=== PATIENT | male | born 1980 | race Caucasian/White ===

== ENCOUNTER 2024-06-24 06:09 | Emergency (ER) | payer OTHER, SELFPAY ==
[2024-06-24 06:12] VITALS: BP 143/87; PULSE 100; RESP 16; TEMP 36.1; O2SAT 96; BMI 24.4
--- NOTE | 2024-06-24 06:17 | CRLHL7_ITS ---
For Patients: As a result of the Century Cures Act, medical imaging exams and procedure reports are released immediately into your electronic medical record. You may view this report before your referring provider. If you have questions, please contact your health care provider. Indication: Injury Technique: A total of three-view of the right hand were acquired. Comparison: None Findings: Bones: Alignment is normal. Subtle linear lucency of the distal fibula. This may be chronic though it could represent a subtle nondisplaced fracture. Correlate with point tenderness at the distal most fibula. Joint spaces: No dislocation. Soft tissues: Soft tissue swelling. No gas within soft tissues. No radiopaque foreign body. Impression: Subtle linear lucency of the distal most fibula. This may be chronic though I suspect a subtle nondisplaced fracture in this area. Correlate with point tenderness at the distal most fibula. No dislocation. No additional findings suggesting fracture. Dictated by Hesham Carvalho MD @ 06/24/2024 6:33:37 AM (Electronically Signed)
--- NOTE | 2024-06-24 06:27 | ED.NURSE ---
ice pack applied.
--- NOTE | 2024-06-24 06:56 | ED_ITS ---
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 He turned quickly and stepped in a hole rolling his right ankle. He had pain immediately that eventually subsided. When he awoke this morning the pain was severe again prompting a trip to the ER. He does not have a local doctor. No other injury. Related Data Allergies Allergy/AdvReac Type Severity Reaction Status Date / Time No Known Drug Allergies Allergy Verified 06/24/24 06:15 Review of Systems Narrative: Review of systems is outlined above otherwise noted to be negative. Exam Narrative: Exam Narrative: Vitals noted. Examination is limited to the right lower extremity. He has soft tissue swelling over the lateral malleolus. He has no medial tenderness and no 5th metatarsal tenderness. There is point tenderness over the extreme distal fi bula. Currently there is minimal swelling and no bruising. Const: Vital Signs, click to edit/add: Vital Signs - 24 hr 06/24/24 06:12 Temperature 97.0 F L Pulse Rate [Left P ulse Oximeter] 100 Respiratory Rate 16 Blood Pressure [Ri ght Upper Arm] 143/87 H Pulse Oximetry 96 Oxygen Delivery Me thod Room Air Course Course ED Course: Patient seen and examined. X-ray confirms a subtle nondisplaced fracture of his extreme right distal fibula. This corresponds with his area of tenderness. He is placed in a cam walker and is able to bear weight. Vital Signs Vital signs: Initial Vital Signs Temperature 97.0 F L 06/24/24 06:12 Temperature Source Temporal Artery Scan 06/24/24 06:12 Pulse Rate 100 06/24/24 06:12 Pulse Rhythm Regular 06/24/24 06:12 Respiratory Rate 16 06/24/24 06:12 Blood Pressure 143/87 H 06/24/24 06:12 Blood Pressure Mean 105 06/24/24 06:12 Blood Pressure Position Sitting 06/24/24 06:12 Pulse Oximetry 96 06/24/24 06:12 Oxygen Delivery Method Room Air 06/24/24 06:12 Vital Signs Temperature 97.0 F L 06/24/24 06:12 Pulse Rate 100 06/24/24 06:12 Respiratory Rate 16 06/24/24 06:12 Blood Pressure 143/87 H 06/24/24 06:12 Pulse Oximetry 96 06/24/24 06:12 Oxygen Delivery Method Room Air 06/24/24 06:12 Temperature 97.0 F L 06/24/24 06:12 Pulse Rate 100 06/24/24 06:12 Respiratory Rate 16 06/24/24 06:12 Blood Pressure 143/87 H 06/24/24 06:12 Pulse Oximetry 96 06/24/24 06:12 Oxygen Delivery Method Room Air 06/24/24 06:12 Discharge Plan Discharge Clinical Impression: Closed fracture of distal end of right fibula Patient Disposition: Home, Self-Care Condition: Stable Additional Instructions: Rest, ice, elevate, is wear cam walker for the next month. Follow-up in the clinic for another x-ray in four weeks. Stand Alone Forms: [facility] Info Instructions
[2024-06-24 07:13] VITALS: BP 143/87; PULSE 100; RESP 16; TEMP 36.1
== END 2024-06-24 07:13 | disposition home or self-care (01) ==
LOC: ED 07:03
PROVIDERS: Emergency Provider Family Medicine
DX: S82.831A Other fracture of upper and lower end of right fibula, initial encounter for closed fracture (principal); X50.1XXA Overexertion from prolonged static or awkward postures, initial encounter
CPT/HCPCS: 73610; 99281; 99283

== ENCOUNTER 2025-08-18 11:50 | Outpatient (BNVA) | payer OTHER, SELFPAY | END 2025-08-18 12:20 | disposition home or self-care (01) | PROVIDERS: Visit Provider Family Medicine | DX: Z01.818 Encounter for other preprocedural examination (principal); I10 Essential (primary) hypertension; K40.90 Unilateral inguinal hernia, without obstruction or gangrene, not specified as recurrent | CPT/HCPCS: 80053 ==

== ENCOUNTER 2025-08-22 09:37 | Day surgery (SDC) | payer OTHER, SELFPAY ==
[2025-08-22] VITALS (14 sets, daily range): BP systolic 125–158; BP diastolic 88–108; PULSE 68–96; RESP 14–22; TEMP 36.7–37.2; O2SAT 96–100; BMI 24.3
--- NOTE | 2025-08-22 10:39 | W.PM.H&PU ---
History & Physical Update History & Physical Update H&P Reviewed and patient assessed: No changes noted
[2025-08-22] MEDS: LACTATED RINGERS 1000 ML 1,000 ML 100 ML IV (10:44)
[2025-08-22] MEDS: SODIUM CHLORIDE 0.9 % (FLUSH) 10 ML SYRINGE IVF (10:45)
--- NOTE | 2025-08-22 10:56 | P.GSOP_ITS ---
Operative Note Date of procedure: 08/22/25 Pre-op diagnosis: 1. Symptomatic left inguinal hernia. Post-op diagnosis: 1. Moderately sized indirect left inguinal hernia. 2. Small direct left inguinal hernia. Type of Procedure: 1. Laparoscopic left inguinal hernia repair with mesh. Indications: 44-year-old male was seen in clinic for evaluation of a left inguinal hernia. Patient was at work last week and was lifting a heavy treated post and felt pain in the left lower abdomen. The pain was described as soreness. The pain continues throughout the day and into the next morning. He went to see his primary care doctor because he was concerned that he had hernia. Patient was diagnosed with a small left inguinal hernia and referred to our clinic for evaluation and treatment. Patient continues to have pain in the left inguinal canal with activities. On clinical exam with the patient standing up and doing Valsalva there is a small inguinal hernia palpated in the left side. Patient had discomfort with this part of the exam. There was no evidence of hernia on the right side. Given patient's clinical history, his symptoms and his active lifestyle as well as work demands for heavy lifting, a laparoscopic left inguinal hernia repair was recommended. The procedure was discussed in detail. The risks associated procedure including infection, bleeding, injury to preperitoneal organs, and hernia recurrence were all discussed with the patient, and he agreed to proceed. Procedure Description: After discussing the risks and benefits of the procedure, the patient signed informed consent.? The operative site was marked and the patient was brought to the operating room and placed on the operating table in supine position.? Care was taken to pad the patient's pressure points.?? The patient was then intubated by anesthesia.?? The operative site was then prepped and draped in the usual sterile fashion.? A time-out was then performed. An infraumbilical skin incision was made with a scalpel and subcutaneous tissues were dissected with electrocautery. Anterior sheath was incised with electrocautery and rectus muscle was retracted laterally. A 12 mm spacemaker dissector system was introduced into the incision and advanced over the posterior sheath. Preperitoneal space was dissected with manually insufflating air under direct visualization. Once the tissues were dissected, the balloon was deflated and removed.? A laparoscopic balloon was placed into preperitoneal sp danielle and balloon was inflated. Preperitoneal space was insufflated with air. No bleeding was identified upon examination of preperitoneal space. We then placed two 5 mm ports suprapubically under direct visualization. ? The preperitoneal tissues were bluntly dissected with graspers.? The pubic bone was identified and? cleared from preperitoneal tissue.?? Inferior epigastrics on left?side were retracted towards the abdominal wall.?? Spermatic cord? was identified and dissected circumferentially.? This was done bluntly. There was a small direct hernia space was identified.??The hernia sac was identified adjacent to the spermatic cord. This was dissected away from the inguinal canal on the spermatic cord. During this dissection, the hernia sac was entered. This hernia sac opening was clipped with multiple 5 mm clips. I continued dissecting preperitoneal tissues on the left side. The hernia sac was bluntly retracted cranially. When adequate space was developed for mesh placement, a l eft sided Bard 3D mesh was used and positioned over the spermatic cord and hernia defect. The mesh was tacked medially and laterally with?tacks.? Additional local anesthetic was injected directly into pre-peritoneal space. ? The space was deflated under direct visualization and mesh appeared to be still lying in a good position. The ports were then removed. Posterior sheath and peritoneum were bulging from pneumoperitoneum that was created during preperitoneal dissection and entering the hernia sac. The posterior sheath was grasped with Kim clamps and incised with Metzenbaum scissors. Pn eumoperitoneum was then reduced. This posterior sheath and peritoneal opening was closed with 3-0 Vicryl suture. Anterior sheath was then closed with a running 0-0 vicryl suture. Skin was closed with 4-0 monocryl using subcuticular stitch. Steri strips were applied over the laparoscopic?incisions. ? All counts were correct at the end of the case. Patient tolerated the procedure well and was transferred to PACU without any complications. Findings: Moderately sized indirect inguinal hernia and small direct inguinal hernia, repaired with mesh. Implants: Large 3D Bard mesh. Anesthesia: GETA Surgeon: Julia Cobb MD Estimated blood loss (mL): 5 Condition: stable Disposition: PACU
[2025-08-22] MEDS: BUPIVACAINE 0.25% 30 ML INJECTION (11:20)
[2025-08-22] MEDS: LIDOCAINE 1%-EPI 1:100,000 20 ML INFILTRATI (11:22)
--- NOTE | 2025-08-22 12:53 | P.ANES_ITS ---
Anesthesia Charges Start Date/Time Anesthesia Start Date: 08/22/25 Anesthesia Start Time: 11:15 Stop Date/Time Anesthesia Stop Date: 08/22/25 Anesthesia Stop Time: 12:50 Coding CPT Codes CPT Codes: ANESTH REPAIR OF HERNIA - 77518 ([id number]) P1 - NORMAL HEALTHY PATIENT, QX - LAB COORDINATOR THEA W/ MED DIRECTION, QK - KILN REPAIRER 2-4 CNCRNT ANES PROC
--- NOTE | 2025-08-22 12:53 | W.ANESCHARGE ---
Anesthesia Charges Start Date/Time Anesthesia Start Date: 08/22/25 Anesthesia Start Time: 11:15 Stop Date/Time Anesthesia Stop Date: 08/22/25 Anesthesia Stop Time: 12:50 Coding CPT Codes CPT Codes: ANESTH REPAIR OF HERNIA - 41843 ([id number]) P1 - NORMAL HEALTHY PATIENT, QX - CHEMICAL PLANT OPERATOR THEA W/ MED DIRECTION, QK - AUTOMOTIVE SOFTWARE ENGINEER 2-4 CNCRNT ANES PROC
--- NOTE | 2025-08-22 13:01 | P.ANES_ITS ---
Anesthesia Charges Start Date/Time Anesthesia Start Date: 08/22/25 Anesthesia Start Time: 11:15 Stop Date/Time Anesthesia Stop Date: 08/22/25 Anesthesia Stop Time: 12:50 Coding CPT Codes CPT Codes: ANESTH SURG LOWER ABDOMEN - 89884 ([id number]) QX - PEST CONTROL SERVICE SALES AGENT SVC W/ MD MED DIRECTION, QK - WAREHOUSE ORDER SELECTOR 2-4 CNCRNT ANES PROC, P2 - PATIENT W/MILD SYST DISEASE
--- NOTE | 2025-08-22 13:01 | W.ANESCHARGE ---
Anesthesia Charges Start Date/Time Anesthesia Start Date: 08/22/25 Anesthesia Start Time: 11:15 Stop Date/Time Anesthesia Stop Date: 08/22/25 Anesthesia Stop Time: 12:50 Coding CPT Codes CPT Codes: ANESTH SURG LOWER ABDOMEN - 90087 ([id number]) QX - CUPOLA PATCHER SVC W/ MD MED DIRECTION, QK - SHIP FASTENER 2-4 CNCRNT ANES PROC, P2 - PATIENT W/MILD SYST DISEASE
[2025-08-22] MEDS: HYDROCODONE-ACETAMIN 5-325 MG 1 TAB PO (13:50)
--- NOTE | 2025-08-22 14:17 | SUR.PHASEII ---
Pt ambulated out to lobby with RN and pt's mother. Pt's mother verbally states she is his ride and will be bringing him home.
== END 2025-08-22 14:19 | disposition home or self-care (01) ==
PROVIDERS: Visit Provider Surgery
PROC: (CPT 49650; principal; 2025-08-22 11:15)
DX: K40.90 Unilateral inguinal hernia, without obstruction or gangrene, not specified as recurrent (principal)
CPT/HCPCS: 49650; 00830; 00840; A9270; C1781; J0665; J0690; J1100; J1171; J1885; J2704; J3010; J3490; J7120